=== PATIENT | female | born 1970 | race Caucasian/White ===

== ENCOUNTER 2020-05-04 09:49 | Day surgery (SDC) | payer OTHER ==
[~2020-05-04] VITALS: Ht 167.6 cm; Wt 62.7 kg
[2020-05-04 10:48] VITALS: BP 122/85
[2020-05-04] MEDS ORDERED: LACTATED RINGERS 1,000 ML IV SCH (10:53)
[2020-05-04] MEDS ORDERED: ZONI100C29 PO (10:55)
[2020-05-04] MEDS ORDERED: CALC60FO2 TP (10:55)
[2020-05-04] MEDS ORDERED: DOXY100C2 PO (10:55)
[2020-05-04] MEDS ORDERED: LANS30CA PO (10:55)
[2020-05-04] MEDS ORDERED: LEVO1CAP8 PO (10:55)
[2020-05-04] MEDS ORDERED: S-AD200T5 PO (10:55)
[2020-05-04] MEDS ORDERED: METR250T18 PO (10:55)
[2020-05-04] MEDS ORDERED: CHLORHEXIDINE 15 ML UDC MM ONE (11:00)
[2020-05-04] MEDS ORDERED: LIDOCAINE-MPF 1%, 2ML ONE (11:05)
[2020-05-04 11:09] LABS: HCG UR SG 1.031 (1.003-1.030)
[2020-05-04] MEDS ORDERED: LIDOCAINE-MPF 1%, 2ML INFIL ONE (11:30)
[2020-05-04] MEDS ORDERED: ISOSULFAN BLUE 10 MG/ML, 5ML IV ONE (13:13)
[2020-05-04] MEDS ORDERED: BUPIVACAINE/PF 0.5% ONE (13:13)
[2020-05-04] MEDS ORDERED: EPINEPHRINE 1 MG/ML, 1ML ONE (13:14)
[2020-05-04] MEDS ORDERED: ACETAMINOPHEN 325 MG TABLET PO PRN (13:30)
[2020-05-04] MEDS ORDERED: OXYcodone 5 MG/5 ML ORAL.SOL UDC PO PRN (13:30)
[2020-05-04] MEDS ORDERED: FENTANYL PF 100 MCG/2ML IV PRN (13:30)
[2020-05-04] MEDS ORDERED: LABETALOL 5MG/ML, 20ML IV PRN (13:30)
[2020-05-04] MEDS ORDERED: MEPERIDINE/PF 25MG/0.5ML IVPush PRN (13:30)
[2020-05-04] MEDS ORDERED: HALOPERIDOL 5 MG/ML IV PRN (13:30)
[2020-05-04] MEDS ORDERED: PROMETHAZINE 25 MG/ML, 1ML IVPush PRN (13:30)
[2020-05-04] MEDS ORDERED: hydrALAzine 20 MG/ML, 1ML IV PRN (13:30)
[2020-05-04] MEDS ORDERED: HYDROmorphone 1 MG/ML, 1ML INJ IVPush PRN (13:30)
[2020-05-04] MEDS ORDERED: morphine SULFATE 10 MG/ML, 1ML IVPush PRN ×2 (13:30→15:00)
[2020-05-04] MEDS ORDERED: HYDROcodone/APAP 5/325 TABLET PO PRN (15:00)
[2020-05-04] MEDS ORDERED: DIPHENHYDRAMINE 50 MG/ML, 1ML IVPush PRN (15:00)
[2020-05-04] MEDS ORDERED: ONDANSETRON 2MG/ML, 2ML IVPush PRN (15:00)
[2020-05-04] MEDS ORDERED: KETOROLAC 30 MG/1 ML IVPush PRN (16:00)
== END 2020-05-04 16:25 | disposition home or self-care (01) ==
LOC: OUT 09:49
PROVIDERS: ATTEND Surgery
DX: C50.411 Malignant neoplasm of upper-outer quadrant of right female breast (principal); Z20.828 Contact with and (suspected) exposure to other viral communicable diseases; C77.3 Secondary and unspecified malignant neoplasm of axilla and upper limb lymph nodes; G43.909 Migraine, unspecified, not intractable, without status migrainosus; F17.210 Nicotine dependence, cigarettes, uncomplicated; Z17.0 Estrogen receptor positive status [ER+]; Z79.899 Other long term (current) drug therapy; Z85.828 Personal history of other malignant neoplasm of skin
CPT/HCPCS: 19301; 36415; 38525; 38792; 81025; 87635; 88305; 88307; A9541; J0171; J0690; J1100; J1885; J2250; J2405; J2704; J2710; J3010; J7120

== ENCOUNTER → 2020-06-14 | Outpatient (CLI) | payer OTHER ==
[~2020-06-14] MED LIST: CALC60FO2 TP; DOXY100C2 PO; LANS30CA PO; LEVO1CAP8 PO; METR250T18 PO; OMNIPAQUE 350 MG/ML, 100ML BOTTLE ONE; S-AD200T5 PO; ZONI100C29 PO
[2020-06-14 11:03] LABS: CREATININE 0.69 mg/dL (0.55-1.02)
== END | disposition home or self-care (01) ==
LOC: RAD 10:02
PROVIDERS: ATTEND Internal Medicine Hematology & Oncology
DX: C50.811 Malignant neoplasm of overlapping sites of right female breast (principal)
CPT/HCPCS: 36415; 71260; 74177; 78306; 82565; A9503; Q9967

== ENCOUNTER → 2020-06-22 | Outpatient (CLI) | payer OTHER ==
[~2020-06-22] MED LIST changes: -OMNIPAQUE 350 MG/ML, 100ML BOTTLE ONE
== END | disposition home or self-care (01) ==
LOC: CVU 08:37
PROVIDERS: ATTEND Internal Medicine Hematology & Oncology
DX: C50.811 Malignant neoplasm of overlapping sites of right female breast (principal); Z17.0 Estrogen receptor positive status [ER+]; Z87.891 Personal history of nicotine dependence
CPT/HCPCS: 93306

== ENCOUNTER → 2020-07-07 | Outpatient (CLI) | payer OTHER | END | disposition home or self-care (01) | LOC: STAR 14:03 | PROVIDERS: ATTEND Anesthesiology | DX: Z20.828 Contact with and (suspected) exposure to other viral communicable diseases (principal) | CPT/HCPCS: 87635 ==

== ENCOUNTER 2020-07-13 05:44 | Day surgery (SDC) | payer OTHER ==
[~2020-07-13] VITALS: Ht 167.6 cm; Wt 62.0 kg
[2020-07-13 06:39] VITALS: BP 122/83
[2020-07-13] MEDS ORDERED: PLEASE ENTER HEIGHT AND WEIGHT MC SCH (07:00)
[2020-07-13] MEDS ORDERED: CHLORHEXIDINE 15 ML UDC MM ONE (07:00)
[2020-07-13] MEDS ORDERED: LACTATED RINGERS 1,000 ML IV SCH (07:00)
[2020-07-13 07:02] LABS: HCG UR SG 1.018 (1.003-1.030)
[2020-07-13] MEDS ORDERED: EPINEPHRINE 1 MG/ML, 1ML ONE (07:03)
[2020-07-13] MEDS ORDERED: BUPIVACAINE/PF 0.5% ONE (07:03)
[2020-07-13] MEDS ORDERED: SODIUM CHLORIDE 0.9% 0 ML ONE (07:03)
[2020-07-13] MEDS ORDERED: HEPARIN 1,000 UNITS/ML, 10ML ONE (07:03)
[2020-07-13] MEDS ORDERED: FENTANYL PF 100 MCG/2ML ONE (07:12)
[2020-07-13] MEDS ORDERED: MIDAZOLAM 1 MG/ML, 2ML ONE (07:12)
[2020-07-13] MEDS ORDERED: FENTANYL PF 100 MCG/2ML IV PRN (08:00)
[2020-07-13] MEDS ORDERED: PROMETHAZINE 25 MG/ML, 1ML IVPush PRN (08:00)
[2020-07-13] MEDS ORDERED: HYDROmorphone 1 MG/ML, 1ML INJ IVPush PRN (08:00)
[2020-07-13] MEDS ORDERED: OXYcodone 5 MG/5 ML ORAL.SOL UDC PO PRN (08:00)
[2020-07-13] MEDS ORDERED: ACETAMINOPHEN 325 MG TABLET PO PRN (08:00)
[2020-07-13] MEDS ORDERED: DIPHENHYDRAMINE 50 MG/ML, 1ML IVPush PRN ×2 (08:00→08:30)
[2020-07-13] MEDS ORDERED: DIAZEPAM 5 MG/ML, 2ML IVPush PRN (08:00)
[2020-07-13] MEDS ORDERED: MEPERIDINE/PF 25MG/0.5ML IVPush PRN (08:00)
[2020-07-13] MEDS ORDERED: ONDANSETRON 2MG/ML, 2ML IVPush PRN ×2 (08:00→08:30)
[2020-07-13] MEDS ORDERED: OXYcodone/APAP 5/325MG TABLET PO PRN (08:30)
[2020-07-13] MEDS ORDERED: morphine SULFATE 10 MG/ML, 1ML IVPush PRN (08:30)
[2020-07-13] MEDS ORDERED: KETOROLAC 30 MG/1 ML IVPush PRN (08:30)
[2020-07-13] MEDS ORDERED: ONDANSETRON 2MG/ML, 2ML ONE (09:30)
[2020-07-13] MEDS ORDERED: SUCCINYLCHOLINE 20 MG/ML, 10ML ONE (09:30)
[2020-07-13] MEDS ORDERED: ROCURONIUM 10MG/ML,5ML ONE (09:30)
[2020-07-13] MEDS ORDERED: CEFAZOLIN 1,000 MG ONE (09:30)
[2020-07-13] MEDS ORDERED: PROPOFOL 10 MG/ML, 20ML ONE (09:30)
== END 2020-07-13 09:20 | disposition home or self-care (01) ==
LOC: OUT 05:44
PROVIDERS: ATTEND Surgery
DX: Z45.2 Encounter for adjustment and management of vascular access device (principal); C50.912 Malignant neoplasm of unspecified site of left female breast; Z79.899 Other long term (current) drug therapy; Z88.8 Allergy status to other drugs, medicaments and biological substances; F17.210 Nicotine dependence, cigarettes, uncomplicated; Z72.89 Other problems related to lifestyle; Z85.828 Personal history of other malignant neoplasm of skin; Z98.890 Other specified postprocedural states
CPT/HCPCS: 36561; 76937; 77001; 81025; C1788; J0171; J0330; J0690; J1644; J2250; J2405; J2704; J3010; J7120

== ENCOUNTER 2021-02-16 07:12 | Outpatient (CLI) | payer OTHER | END 2021-02-16 23:59 | disposition home or self-care (01) | LOC: ROC 07:12 | PROVIDERS: ATTEND Radiology Radiation Oncology | DX: Z08 Encounter for follow-up examination after completed treatment for malignant neoplasm (principal); Z85.3 Personal history of malignant neoplasm of breast | CPT/HCPCS: 99213; G0463 ==